=== PATIENT | male | born 1990 | race Hispanic/Latino ===

== ENCOUNTER 2019-03-09 16:55 | Outpatient (CLI) | payer OTHER ==
--- NOTE | 2019-03-09 18:31 | RAD ---
CERVICAL SPINE THREE VIEWS: 03/09/2019 FINDINGS: There is loss of the normal cervical lordosis, which may be due to muscle spasm. No fracture, new or old, is seen. The disk spaces are normal in height, and the C1 to dens distance is normal. The sof t tissues are normal in thickness. IMPRESSION: No acute cervical findings, except for straightening of the cervical spine. POS: HOME
== END 2019-03-09 16:56 | disposition home or self-care (01) ==
LOC: BURRAD 16:55
PROVIDERS: ATTEND Nurse Practitioner Family
DX: M54.2 Cervicalgia (principal); G89.29 Other chronic pain
CPT/HCPCS: 72040

== ENCOUNTER 2020-03-31 08:42 | Emergency (ER) | payer OTHER, SELFPAY ==
[2020-03-31] MEDS ORDERED: Lidocaine 1% PF 5 ML VIAL ONE (09:17)
[2020-03-31] MEDS ORDERED: Bacitracin 1 PK ONE (09:32)
[2020-03-31] MEDS ORDERED: Clindamycin 150 MG CAP ONE (09:36)
== END 2020-03-31 09:41 | disposition home or self-care (01) ==
LOC: BURERS 08:42
DX: L02.01 Cutaneous abscess of face (principal)
CPT/HCPCS: 69000